=== PATIENT | female | born 1965 | race Caucasian/White ===

== ENCOUNTER → 2018-04-02 | Outpatient (CLI) | payer OTHER ==
[~2018-04-02] MED LIST: LISINOPRIL; MECL25 PO; PROM25 PO; PROM25S PR
== END | disposition home or self-care (01) ==
LOC: LAB 16:46 → LAB SHORT 16:46
PROVIDERS: Obstetrics & Gynecology
DX: Z01.419 Encounter for gynecological examination (general) (routine) without abnormal findings (principal)
CPT/HCPCS: 87624; G0123

== ENCOUNTER → 2019-04-14 | Outpatient (CLI) | payer OTHER ==
[2019-04-16 12:06] LABS: HPV 16 Negative (Negative); HPV 18 Negative (Negative); HPV OTHER HR TYPES Negative (Negative)
== END | disposition home or self-care (01) ==
LOC: LAB SHORT 15:09 → LAB 15:09
PROVIDERS: Obstetrics & Gynecology
DX: Z12.4 Encounter for screening for malignant neoplasm of cervix (principal)
CPT/HCPCS: 87624; G0123

== ENCOUNTER 2019-06-15 08:16 | Day surgery (SDC) | payer OTHER ==
[~2019-06-15] VITALS: Ht 160 cm; Wt 81.3 kg
[~2019-06-15 08:16] MED LIST changes: +ADVIL LIQUI-GE200 MG; +CLARITIN10 MG; +LEVO-T175 MCG; +PROBIOTIC1 EAC1; +PSEU120ER; +THERA1 EACH; +VICODIN ES 7.51 EACH; +ZESTORETIC 20-121 EA; +ZOLP10; +Zantac150 MG
--- NOTE | 2019-06-15 09:39 | NUR ---
06/15/19 0938 Regina Rodriguez PATIENT IS NOTIFIED OF DELAY, SHE IS RESTING COMFORTABLY WITH HER DAUGHTER AT BEDSIDE, CALL LIGHT IN REACH.
--- NOTE | 2019-06-15 12:40 | NUR ---
06/15/19 1240 Humaira Ramirez REPORT TO [email or web address]
== END 2019-06-15 14:05 | disposition home or self-care (01) ==
LOC: ORSCSDS 08:16
PROVIDERS: Orthopaedic Surgery
PROC: 0LQ24ZZ Repair Left Shoulder Tendon, Percutaneous Endoscopic Approach (ICD-10-PCS; principal; 2019-06-15 09:45)
PROC: 0RNK4ZZ Release Left Shoulder Joint, Percutaneous Endoscopic Approach (ICD-10-PCS; principal; 2019-06-15 09:45)
DX: M75.112 Incomplete rotator cuff tear or rupture of left shoulder, not specified as traumatic (principal); M75.42 Impingement syndrome of left shoulder; M75.52 Bursitis of left shoulder; I10 Essential (primary) hypertension; Z79.899 Other long term (current) drug therapy
CPT/HCPCS: C1713; J0171; J0690; J2250; J2704; J2795; J3010; J7120

== ENCOUNTER 2024-04-30 13:00 | Day surgery (SDC) | payer OTHER ==
[~2024-04-30] VITALS: Ht 157.5 cm; Wt 78.3 kg
[~2024-04-30 13:00] MED LIST changes: +Lactated Ringer's 1,000 ML IV ONE; +propofoL 50 ML IV ONE
[2024-04-30] MEDS ORDERED: OMEP20ER (13:11)
[2024-04-30] MEDS ORDERED: GABA300 (13:11)
[2024-04-30] MEDS ORDERED: ZINC15 (13:12)
[2024-04-30] MEDS ORDERED: Aspir 8181 MG (13:12)
[2024-04-30] MEDS ORDERED: VITAMIN D350 MC3 (13:12)
[2024-04-30] MEDS ORDERED: Lactated Ringer's 1,000 ML IV ONE (13:28)
[2024-04-30 15:02] VITALS: BP 131/65
== END 2024-04-30 15:08 | disposition home or self-care (01) ==
LOC: ORSCSDS 13:00
PROVIDERS: Internal Medicine Gastroenterology
PROC: 0DBL8ZX Excision of Transverse Colon, Via Natural or Artificial Opening Endoscopic, Diagnostic (ICD-10-PCS; principal; 2024-04-30 14:15)
PROC: 0DBP8ZX Excision of Rectum, Via Natural or Artificial Opening Endoscopic, Diagnostic (ICD-10-PCS; principal; 2024-04-30 14:15)
PROC: 0DBH8ZX Excision of Cecum, Via Natural or Artificial Opening Endoscopic, Diagnostic (ICD-10-PCS; principal; 2024-04-30 14:15)
DX: Z12.11 Encounter for screening for malignant neoplasm of colon (principal); D12.0 Benign neoplasm of cecum; D12.3 Benign neoplasm of transverse colon; K62.1 Rectal polyp; K64.8 Other hemorrhoids; I10 Essential (primary) hypertension; E78.5 Hyperlipidemia, unspecified; H81.09 Meniere's disease, unspecified ear; Z85.850 Personal history of malignant neoplasm of thyroid; Z79.82 Long term (current) use of aspirin; Z79.899 Other long term (current) drug therapy
CPT/HCPCS: 88305; J2704; J7120